=== PATIENT | male | born 1975 | race Caucasian/White ===

== ENCOUNTER 2024-08-26 10:09 | Day surgery (SDC) | payer BC ==
[~2024-08-26 10:09] MED LIST: Sodium Chloride 0.9% 10 ML Syringe FLUSH PRN; Sodium Chloride 0.9% 2.5 ML Syringe FLUSH PRN
[2024-08-26] MEDS: Lactated Ringers 1,000 ML IV SCH (10:45)
[2024-08-26] MEDS ORDERED: Propofol 200 MG/20 ML SDV ONE (11:51)
[2024-08-26] MEDS ORDERED: propofoL 500 MG/50 ML 50 ML ONE (13:05)
[2024-08-26] MEDS ORDERED: ePHEDrine 50 MG/ML SDV ONE (13:14)
== END 2024-08-26 14:18 | disposition home or self-care (01) ==
LOC: MW.SDS 10:09
PROVIDERS: ATTEND Surgery
DX: Z12.11 Encounter for screening for malignant neoplasm of colon (principal); D12.2 Benign neoplasm of ascending colon; E66.9 Obesity, unspecified; E78.00 Pure hypercholesterolemia, unspecified; E11.9 Type 2 diabetes mellitus without complications; F17.200 Nicotine dependence, unspecified, uncomplicated; Z88.2 Allergy status to sulfonamides; Z68.34 Body mass index [BMI] 34.0-34.9, adult; Z86.0100 Personal history of colon polyps, unspecified
CPT/HCPCS: 45385; J2003; J2704; J7120; 00811; J3490